=== PATIENT | male | born 1960 | race Caucasian/White ===

== ENCOUNTER 2019-06-22 11:15 | Outpatient (CLI) | payer MEDICARE, SELFPAY ==
[2019-06-25 14:49] LABS: Carbamazepine Tegretol 9.7 mcg/mL (4.0-12.0)
== END 2019-06-22 11:16 | disposition home or self-care (01) ==
LOC: ANHSURGERY 11:20
PROVIDERS: Anesthesiology; PCP Internal Medicine; Visit Provider Surgery
DX: R56.9 Unspecified convulsions (principal)
CPT/HCPCS: 36415; 80156

== ENCOUNTER 2019-07-05 00:19 | Day surgery (SDC) | payer MEDICARE, SELFPAY ==
[2019-06-18 14:33] VITALS: BMI 25.7
--- NOTE | 2019-07-05 07:43 | PM.HPGS ---
History of Present Illness History of Present Illness Consent: Risks, benefits, and alternatives of excision of a chronic epidermal cyst versus abscess at the perineum behind the scrotum have been discussed and questions answered. Patient agrees to proceed with procedure. Chief complaint: Recently Infected Epidermal Cyst Perineum Narrative: Marko Cobian is a 59 year old male returned to the office late last month after an I&D of a perineal abscess on 04/14/19. He reports he is doing well. He no longer covers the area. He reports the area does still itch and he noticed some drainage to the area today. He reports he can not tell if there is a bump in the area or not. He reports that he took the Cipro that was prescribed at last visit, he reports that the area was not draining while on the Cipro. The area just started draining over the last few days. He reports he has been showering and cleaning the area daily. Review of Systems Constitutional: Constitutional: Reports no additional constitutional complaints, Reports fatigue and Denies malaise Eyes: Eyes: Denies change in vision and Denies loss of vision ENT: Reports Normal hearing present, Denies change in voice, Denies dizziness, Denies hoarseness and Denies sore throat Cardiovascular: Cardiovascular: Denies chest pain, Denies leg edema and Denies dyspnea Respiratory: Respiratory: Denies cough, Denies dyspnea and Denies wheezing Gastrointestinal: Gastrointestinal: Denies hematochezia, Denies change in bowel habits and Denies heartburn Genitourinary: Genitourinary: Denies urinary frequency and Denies urinary incontinence Comments: History of BPH Integumentary/Breasts: Comments: No previous history of epidermal cysts Neurologic: Reports Normal hearing present, Denies confusion, Denies dizziness, Denies loss of vision, Denies memory loss and Reports seizure-like activity Psychiatric: Psychiatric: Denies confusion, Denies depression and Denies memory loss Endocrine: Endocrine: Denies cold intolerance and Reports fatigue Hematologic/Lymphatic: Hematologic/Lymphatic: Denies easy bleeding and Denies easy bruising Allergic/Immunologic: Allergic/Immunologic: Denies wheezing PMFSH Past Medical History Medical History Epidermal inclusion cyst (~03/2019) Head injury Seizure at night Skin lesion of back Surgical History Surgical History H/O knee surgery History of back surgery hematoma drained Hx of surgical amputation of finger index finger Family History Family History Father Malignant neoplasm of prostate Other Family history of malignant neoplasm Social History Social History Smoking status: Light tobacco smoker Alcohol intake: never Gender identity (if verbalized by the patient): Male Meds Home Medications and Allergies Home Medications Medication Instructions Recorded Confirmed Type aspirin 81 mg tablet,delayed 81 mg PO DAILY 04/12/19 07/05/19 History release carbamazepine 200 mg tablet 600 mg PO DAILY 04/12/19 07/05/19 History topiramate 100 mg capsule,extended 300 mg PO DAILY cap 04/12/19 07/05/19 History release 24 hr ciprofloxacin HCl 500 mg tablet 500 mg PO Q12H #14 tablet 06/03/19 07/05/19 Rx Allergies Allergy/AdvReac Type Severity Reaction Status Date / Time No Known Allergies Allergy Verified 07/05/19 08:43 Exam Const: General: cooperative, healthy appearing, no acute distress, well developed and alert; No confusion Nutritional Appearance: well nourished Orientation/consciousness: patient oriented x3 and No confusion Limitations: no limitations HENMT: Head: normal to inspection, normocephalic and atraumatic Ears: hearing grossly normal bilaterally General nose exam: Normal external nose pr
[2019-07-05 08:25] VITALS: BP 98/57; PULSE 58; RESP 16; TEMP 37.2; O2SAT 98; BMI 27.1
[2019-07-05] MEDS: LACTATED RINGERS 1,000 ML 30 ML IV CONT (08:35)
--- NOTE | 2019-07-05 08:45 | WPDANESEPPF ---
Anes - Initial Pre Proc Eval Procedure: Operation Date: 07/05/19 10:00 Proposed Procedures p Excision Of Epidermal Cyst Perineum - Coleman Rivera MD Date/Time: 07/05/19 08:45 Surgeon: Coleman Rivera MD Pre Op Diagnosis: Recently Infected Epidermal Cyst Perineum Patient Data Age: 59 Gender: M Height: 5 ft 11 in Weight: 83.91 kg Allergies Allergy/AdvReac Type Severity Reaction Status Date / Time No Known Allergies Allergy Verified 07/05/19 08:43 Home Medications Medication Instructions Recorded Confirmed Type aspirin 81 mg tablet,delayed 81 mg PO DAILY 04/12/19 07/05/19 History release carbamazepine 200 mg tablet 600 mg PO DAILY 04/12/19 07/05/19 History topiramate 100 mg capsule,extended 300 mg PO DAILY cap 04/12/19 07/05/19 History release 24 hr ciprofloxacin HCl 500 mg tablet 500 mg PO Q12H #14 tablet 06/03/19 07/05/19 Rx Patient hx anesthesia problems: none Family hx anesthesia problems: none PMFSH Past Medical History Medical History Epidermal inclusion cyst (~03/2019) Head injury Seizure at night Skin lesion of back Surgical History Surgical History H/O knee surgery History of back surgery hematoma drained Hx of surgical amputation of finger index finger Family History Family History Father Malignant neoplasm of prostate Other Family history of malignant neoplasm Social History Social History Smoking status: Light tobacco smoker Alcohol intake: never Gender identity (if verbalized by the patient): Male Anes - Eval Final PreProcedure Day of Procedure 07/05/19 08:45 Patient weight: normal Heart: regular rate and rhythm Lungs: decreased breath sounds Airway: Mallampati scale Neurological: other (alert) Last oral intake: >/= 8 hours ASA classification: III Emergent: no Anesthetic plan: proceed Anesthesia type and monitoring: general GIVS and standard monitoring Informed Consent: The patient's anesthetic plan and its attendant risks and benefits were discussed with the patient/family/POA. Questions were solicited and answers provided to the satisfaction of the patient/family/POA.
[2019-07-05] MEDS: ceFAZolin 2 GM/D5W 50 ML 2 GM/50 ML BAG IVPB (09:40)
[2019-07-05] MEDS: BUPIVACAINE/EPINEPHRINE 0.5% 30 ML VIAL 4 ML INFILTRATE (10:03)
[2019-07-05 10:41] VITALS: BP 86/53; PULSE 52; RESP 18; TEMP 36.4; O2SAT 99
--- NOTE | 2019-07-05 10:54 | PM.PROC ---
Procedure Note - Detailed Date of procedure: 07/05/19 Pre-op diagnosis: Recently Infected Epidermal Cyst Perineum Post-op diagnosis: same Procedure performed: Excision of skin lesion of the perineum ( anterior to anal opening, on the back of the scrotum). Description of procedure: The patient was placed in the left lateral decubitus position. After a surgical time out confirming patient and procedure the patient was prepped and draped in the usual sterile fashion. Local anesthetic was administered subcutaneously. The lesion measured approximately 1 cm in diameter. I measured the outlined elliptical excision prior to making the incision and this measured 3 x 1 cm in size. This ellipse of skin along with the cyst which was central in the ellipse was completely excised. An elliptical incision was made around the lesion taking a thin margin circumferentially. I dissected down to the deep subcutaneous tissues and then completely excised the lesion. Bleeding was controlled with electrocautery. The wound was closed in two layers. An un-dyed 3-0 vicryl deep dermal and then a 4-0 undyed Vicryl running subcuticular closure was completed. Surgical glue applied as dressing. Careful examination between the most posterior end of this incision and the anus revealed no punctate openings to 6 chest further CIS nor any openings to suggest a fistula. Patient tolerated this well. Anesthesia: local ( 0.5% Marcaine with epinephrine) and other ( G IV S) Surgeon: Coleman Rivera MD Special Event Assistant: none Estimated blood loss (mL): 5 Drains: No Packing: No Pathology: yes (Skin and subcutaneous tissue) Complications: No immediate complications Condition: stable Disposition: same day Findings: there was indurated skin and subcutaneous tissue that was excised right along the median raphe approximately 4-5 cm anterior to the anal opening.
[2019-07-05 11:10] VITALS: BP 91/54; PULSE 46; O2SAT 95
[2019-07-05 11:35] VITALS: BP 102/59; PULSE 47; O2SAT 100
== END 2019-07-05 11:55 | disposition home or self-care (01) ==
PROVIDERS: PCP Internal Medicine; Visit Provider Surgery
PROC: (CPT 11423; principal; 2019-07-05 10:00)
DX: L72.0 Epidermal cyst (principal); G40.909 Epilepsy, unspecified, not intractable, without status epilepticus; Z79.82 Long term (current) use of aspirin; F17.210 Nicotine dependence, cigarettes, uncomplicated
CPT/HCPCS: 11423; 12042; 88305; A9270; J0690; J2250; J2704; J3010; J7120

== ENCOUNTER 2022-10-21 01:54 | Day surgery (SDC) | payer MEDICARE, SELFPAY ==
[2022-10-09 09:38] VITALS: BMI 25.8
--- NOTE | 2022-10-09 09:45 | PC.NURSE ---
Report to the Outpatient Waiting Room, entrance under the green pavilion located off [facility], at time 09:30AM on date 10-21-22. Planned Procedure Time: 10:30AM. Time changes happen often and if your time is changed the preop area will call you the afternoon before. - You and your visitor will be asked to self-screen and do not enter if you have any COVID symptoms. - A mask is optional within the hospital at this time. Patient may have light breakfast morning of surgery. Take the following medications with a SIP of water the morning of surgery: CARBAMAZEPINE, TOPIRAMATE DO NOT STOP ANY OF YOUR OTHER PRESCRIPTION MEDICATIONS PRIOR TO SURGERY ?EXCEPT THE FOLLOWING Medications to discontinue per physician N/A Date to take last dose N/A Please no make-up, nail sinhala, hairspray, perfume, deodorant, or body powder the day of surgery. No jewelry (including any body piercings) or valuables the day of surgery, leave them at home. Please take a shower or bath the night before, or the morning of, surgery with an antibacterial soap. Wear comfortable, loose fitting clothing. - Jewelry must be removed prior to entering the operating room. Rings and piercings that are not removed may be cut off. - The hospital will not accept responsibility for valuables. - Please leave all valuables, including medications, at home the day of surgery. Follow any additional instructions given to you from your surgeon. If you or anyone in your household have experienced Covid symptoms in the past week, please notify your surgeon or the nurse liaison at the phone number below for possible testing. Telephone instructions given to PATIENT and asked if any additional questions and then verbalized understanding. Patient advised to call surgeon office or pre surgery nurse liaison [phone] if any additional questions.
[2022-10-21] VITALS (7 sets, daily range): BP systolic 100–116; BP diastolic 50–57; PULSE 56–64; RESP 16; TEMP 36.6; O2SAT 95–100
--- NOTE | 2022-10-21 11:45 | WPDHPUPDATE1 ---
History and Physical Update Update Date/Time: 10/21/22 11:45 History and Physical has been reviewed, including an updated exam of the patient. There are NO changes in the patient's condition. Risks, benefits, and alternatives have been discussed and questions answered. Patient agrees to proceed with procedure.
--- NOTE | 2022-10-21 11:46 | WPDHPUPDATE1 ---
History and Physical Update Update Date/Time: 10/21/22 11:46 History and Physical has been reviewed, including an updated exam of the patient. There are NO changes in the patient's condition. Risks, benefits, and alternatives have been discussed and questions answered. Patient agrees to proceed with procedure.
[2022-10-21] MEDS: BUPivacaine HCL 0.5% PF 30 ML VIAL 10 ML INFILTRATE (12:06)
[2022-10-21] MEDS: LIDO 1%/EPINEPHRINE 1:100,000 50 ML VIAL 10 ML INFILTRATE (12:08)
[2022-10-21] MEDS: NEOMYCIN/POLYMYXIN/BACITRACIN OINTMENT PACKET 1 PACKET TOPICAL (12:38)
--- NOTE | 2022-10-21 12:52 | W.PM.PROC2 ---
Procedure Note - Detailed Date of Procedure 10/21/22 Pre-op Diagnosis Left Upper Back Sebaceous Cyst Post-op Diagnosis Same Procedure Performed Excision left upper back sebaceous cyst with 6cm intermediate layered wound closure Surgeon Nash Payne MD Anesthesia Local Indications Patient is a 52-year-old gentleman who presents with an enlarging sebaceous cyst in the left upper back. He wishes to have excised. Findings No significant findings. Description of Procedure After informed consent was obtained patient brought to the operating room where he was placed on the right lateral decubitus position on the operating table. There the left upper back was then prepped and draped in usual sterile fashion. Time-out was then performed correctly identifying the patient as well as procedure performed and identifying the site marking. I then proceeded to anesthetize the area 0.5% Marcaine mixed with 1% lidocaine. A transverse elliptical incision was then made the scalpel down to the dermis of the skin. Then with curved iris scissors I shelled out wall the cyst. The cyst wall the attached ellipse of skin was then completely excised utilizing electrocautery. It was then sent to pathology for examination. The cyst measured 3.5cm in length by 2cm width by 2cm in depth. I then irrigated out the incision sterile saline solution hemostasis was then achieved utilizing electrocautery. I injected more than local anesthetic mixture for postoperative pain relief. A intermediate layered wound closure measuring 6cm in length was performed to close the incision. This is done by placing interrupted 2-0 and 3-0 Vicryl sutures in the subcutaneous tissues. The skin edges were approximated with interrupted 3-0 nylon sutures placed in vertical mattress fashion. He was then cleaned and antibiotic ointment 4x4 gauze and Tegaderm was used for final dressing. The patient tolerated the procedure well no complications. All sponges, needles, and instrument counts were correct at the end procedure. EBL was __5_cc. The patient was awakened and taken to recovery in stable and satisfactory condition. Implants None Estimated Blood Loss 5 Drains No Packing No Pathology Yes Complications No immediate complications Condition Stable Disposition PACU [facility] Billing Surgery - Charge Forward: Surgery Billing
== END 2022-10-21 13:00 | disposition home or self-care (01) ==
PROVIDERS: PCP Internal Medicine; Visit Provider Surgery
PROC: (CPT 11406; principal; 2022-10-21 12:00)
DX: L72.0 Epidermal cyst (principal)
CPT/HCPCS: 11406; 12032; 88304